=== PATIENT | male | born 1990 | race Caucasian/White ===

== ENCOUNTER 2017-06-12 00:07 | Emergency (ER) | payer OTHER ==
[~2017-06-12] VITALS: Ht 175.3 cm; Wt 66.0 kg
[2017-06-12 00:16] VITALS: BP 132/86
== END 2017-06-12 06:45 | disposition left against medical advice (07) ==
LOC: ER 00:07
DX: F10.10 Alcohol abuse, uncomplicated (principal); Z53.21 Procedure and treatment not carried out due to patient leaving prior to being seen by health care provider